=== PATIENT | female | born 1990 | race Caucasian/White ===

== ENCOUNTER 2022-11-14 18:06 | Emergency (ER) | payer OTHER, SELFPAY ==
[2022-11-14 18:07] VITALS: BP 127/87; PULSE 98; RESP 18; TEMP 37; O2SAT 98; BMI 39.4
--- NOTE | 2022-11-14 18:33 | RAD_ITS ---
STUDY: X-RAY - THORACIC SPINE REASON FOR EXAM: Female, 32 years old. Injury pain TECHNIQUE: 3 view(s) of the thoracic spine were obtained. COMPARISON: None. FINDINGS: Normal kyphosis of the thoracic spine. There is no substantial scoliosis. There is mild multilevel endplate spondylosis of the thoracic vertebrae. There is no acute fracture The soft tissue structures are unremarkable. RAD/Thoracic Spine 2 Views IMPRESSION: Degenerative change. No fracture. Electronically Signed: Archie Soria MD at 19:44 EDT ,
--- NOTE | 2022-11-14 18:33 | RAD_ITS ---
STUDY: X-RAY - LUMBAR SPINE REASON FOR EXAM: Female, 32 years old. Injury pain TECHNIQUE: 3 view(s) of the lumbar spine were obtained. COMPARISON: None FINDINGS: Normal lumbar lordosis. There is no substantial scoliosis. There is a normal alignment of the vertebrae. Normal vertebral bodies and endplates. Normal disc space heights. There is no demonstrated fracture. The soft tissue structures are unremarkable. RAD/Lumbar Spine 2 or 3 Views IMPRESSION: Normal x-ray examination of the lumbar spine. Electronically Signed: Archie Soria MD at 19:48 EDT ,
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
--- NOTE | 2022-11-14 18:55 | RAD_ITS ---
STUDY: X-RAY - CERVICAL SPINE REASON FOR EXAM: Female, 32 years old. Injury pain TECHNIQUE: 3 view(s) of the cervical spine were obtained. COMPARISON: None FINDINGS: Normal anterior atlantoaxial articulation. Normal odontoid process. There is straightening of the normal cervical lordosis. Normal vertebral bodies and endplates. Normal disc space heights. There is no acute fracture. The soft tissue structures are unremarkable. RAD/Cerv Spine 2 or 3 Views IMPRESSION: Straightening of the cervical lordosis. No fracture. Disc spaces are well-preserved. Electronically Signed: Archie Soria MD at 19:43 EDT ,
[2022-11-14] MEDS: Ketorolac 60 MG/2 ML Vial IM (19:10)
[2022-11-14 19:53] VITALS: BP 125/67; PULSE 70; RESP 18; O2SAT 100
== END 2022-11-14 19:55 | disposition home or self-care (01) ==
PROVIDERS: Emergency Provider Emergency Medicine; PCP Student in an Organized Health Care Education/Training Program; Visit Provider Emergency Medicine
DX: S30.0XXA Contusion of lower back and pelvis, initial encounter (principal); S10.93XA Contusion of unspecified part of neck, initial encounter; G89.29 Other chronic pain; S20.229A Contusion of unspecified back wall of thorax, initial encounter; Y04.8XXA Assault by other bodily force, initial encounter; Y99.0 Civilian activity done for income or pay
CPT/HCPCS: 72040; 72070; 72100; 96372; 99282